=== PATIENT | male | born 1990 | race Caucasian/White ===

== ENCOUNTER 2024-10-21 09:40 | Outpatient (CLI) | payer OTHER | END 2024-10-21 09:41 | disposition home or self-care (01) | LOC: SCSRAD 09:40 | PROVIDERS: ATTEND Family Medicine | DX: M25.571 Pain in right ankle and joints of right foot (principal) ==

== ENCOUNTER 2024-10-27 08:29 | Outpatient (CLI) | payer OTHER | END 2024-10-27 08:30 | disposition home or self-care (01) | LOC: SCSMRI 08:29 | PROVIDERS: ATTEND Family Medicine | DX: M25.571 Pain in right ankle and joints of right foot (principal); S93.421A Sprain of deltoid ligament of right ankle, initial encounter; S93.491A Sprain of other ligament of right ankle, initial encounter ==